=== PATIENT | male | born 1945 | race Two or more races ===

== ENCOUNTER 2018-02-03 08:04 | Emergency (ER) | payer MEDICARE ==
[~2018-02-03] VITALS: Ht 162.6 cm; Wt 75.9 kg
[2018-02-03] MEDS ORDERED: IBUP-1506 PO (08:09)
[2018-02-03 08:19] LABS: GLUCOSE,POINT OF CARE 100 MG/DL (70-110)
[2018-02-03] MEDS ORDERED: IOVERSOL 350 MG/ML 100 ML VIAL ONE (08:24)
[2018-02-03] MEDS ORDERED: SODIUM CHLORIDE 0.9% 100 ML ONE (08:24)
[2018-02-03 08:29] LABS: GLUCOSE,POINT OF CARE 101 MG/DL (70-110)
[2018-02-03 08:50] LABS: BASOPHILS % (AUTO) 0.6 % (0.0-2.0); EOSINOPHILS % (AUTO) 2.2 % (1.0-6.0); HEMATOCRIT 38.5 % (41-53); HEMOGLOBIN 12.9 g/dL (13.5-17.5); LYMPHOCYTES # (AUTO) 2.1 K/uL (1.0-4.8); LYMPHOCYTES % (AUTO) 19.4 % (22.0-44.0); MEAN CORPUSCULAR HEMOGLOBIN 29.8 pg (26.0-34.0); MEAN CORPUSCULAR HGB CONC 33.5 G/dL (31.0-37.0); MEAN CORPUSCULAR VOLUME 89 fL (80-100); NEUTROPHILS # (AUTO) 7.4 K/uL (1.8-7.7); NEUTROPHILS % (AUTO) 68.8 % (40.0-70.0); PLATELET COUNT (AUTO) 149 K/uL (150-450); RED BLOOD CELL COUNT(AUTO) 4.33 MIL/uL (4.50-5.90); RED CELL DISTRIBUTION WIDTH 14.1 % (11.5-14.5)
[2018-02-03 08:59] LABS: CALCIUM, TOTAL 8.2 mg/dL (8.8-10.5); CREATININE 1.35 mg/dL (0.60-1.30); POTASSIUM 3.7 mmol/L (3.5-5.1)
[2018-02-03 09:02] LABS: PROTHROMBIN TIME 10.7 SEC (9.4-11.6)
[2018-02-03 09:24] LABS: ALBUMIN 3.3 g/dL (3.4-5.0); BILIRUBIN,TOTAL 0.5 mg/dL (0.1-1.0); TOTAL PROTEIN, SERUM 7.3 g/dL (6.4-8.2)
[2018-02-03 11:17] LABS: APPEARANCE,URINE CLOUDY (CLEAR); BILIRUBIN,URINE NEGATIVE (NEGATIVE); GLUCOSE, URINE (UA) NEGATIVE (NEGATIVE); KETONES,URINE NEGATIVE (NEGATIVE); LEUKOCYTE ESTERASE ,URINE LARGE (NEGATIVE); NITRATE,URINE POSITIVE (NEGATIVE); OCCULT BLOOD,URINE SMALL (NEGATIVE); PROTEIN,URINE NEGATIVE (NEGATIVE); UROBILINOGEN,URINE 0.2 mg/dL (<=1.0)
[2018-02-03 11:28] LABS: BACTERIA,URINE Many /HPF (None Seen); WBC,URINE 51-100 /HPF (0-5)
[2018-02-03] MEDS ORDERED: ASPIRIN 325 MG EC TABLET PO ONE (14:00)
[2018-02-03 15:44] VITALS: BP 140/63
== END 2018-02-03 16:01 | disposition short-term general hospital (02) ==
LOC: EMS 08:05
DX: G45.9 Transient cerebral ischemic attack, unspecified (principal); R00.1 Bradycardia, unspecified; Z90.49 Acquired absence of other specified parts of digestive tract; Z79.899 Other long term (current) drug therapy
CPT/HCPCS: 36415; 70450; 70496; 71045; 80053; 81001; 82550; 82962; 83880; 84484; 85025; 85610; 85730; 87077; 87086; 87186; 93005; 99285; J7050; Q9967